=== PATIENT | female | born 1985 | race Caucasian/White ===

== ENCOUNTER 2018-12-24 20:17 | Emergency (ER) | payer OTHER ==
[2018-12-24 20:43] VITALS: BP 129/84; PULSE 73; TEMP 98.1; BMI 19.3
--- NOTE | 2018-12-25 03:01 | PDOC ---
Documentation entered by Cesar Solorzano SCRIBE, acting as scribe for Keiry Vazquez MD. Keiry Vazquez MD: This documentation has been prepared by the Rashad maitas Matthew, SCRIBE, under my direction and personally reviewed by me in its entirety. I confirm that the documentation accurately reflects all work, treatment, procedures, and medical decision making performed by me. History of Present Illness - General Chief Complaint: Urinary Problem Stated Complaint: UTI Time Seen by Provider: 12/24/18 20:21 History Source: Patient Exam Limitations: No Limitations - History of Present Illness Initial Comments: 12/24/18 21:31 Patient is a 33 year old female with a significant past medical history of who presents to the ED with complaints of urinary frequency that began earlier today. Patient reports believing she ws beginning to develop a UTI, prompting her to drink 4 pints of water in order to washout the UTI. She reports experiencing increased urinary frequency prompting her to come into the ED for further evaluation after becoming increasingly worried. Denies chest pain, sob. Denies nausea, vomiting. Denies dysuria, hematuria. Denies constipation, diarrhea. Denies contact with sick individuals, out of state travelling. Denies any other symptoms. Allergies: grapes, octopus, strawberry Social history: No smoking. No alcohol. No illicit drugs. Surgical history: None PMD: Dr. Daniel Pantoja Past History - Past Medical History Allergies/Adverse Reactions: Allergies Allergy/AdvReac Type Severity Reaction Status Date / Time grape Allergy Mild Verified 12/24/18 20:20 octopus Allergy Mild Verified 12/24/18 20:20 strawberry Allergy Mild Verified 12/24/18 20:20 Home Medications: Ambulatory Orders NK [No Known Home Medication] 12/24/18 Review of Systems - Review of Systems Able to Perform ROS?: Yes Comments:: 12/24/18 21:31 GENERAL/CONSTITUTIONAL: No fever or chills. No weakness. HEAD, EYES, EARS, NOSE AND THROAT: No change in vision. No ear pain or discharge. No sore throat. CARDIOVASCULAR: No chest pain or shortness of breath. RESPIRATORY: No cough, wheezing, or hemoptysis. GASTROINTESTINAL: No nausea, vomiting, diarrhea or constipation. GENITOURINARY: +Urinary frequency. No dysuria or change in urination. MUSCULOSKELETAL: No joint or muscle swelling or pain. No neck or back pain. SKIN: No rash NEUROLOGIC: No headache, vertigo, loss of consciousness, or change in strength/ sensation. ENDOCRINE: No increased thirst. No abnormal weight change. HEMATOLOGIC/LYMPHATIC: No anemia, easy bleeding, or history of blood clots. ALLERGIC/IMMUNOLOGIC: No hives or skin allergy. All Other Systems: Reviewed and Negative *Physical Exam - Vital Signs Last Vital Signs Temp Pulse Resp BP Pulse Ox 98.1 F 73 16 129/84 100 12/24/18 20:19 12/24/18 20:19 12/24/18 20:19 12/24/18 20:19 12/24/18 20:19 - Physical Exam Comments: 12/24/18 21:32 GENERAL: Awake, alert, and fully oriented, in no acute distress HEAD: No signs of trauma EYES: PERRLA, EOMI, sclera anicteric, conjunctiva clear ENT: Auricles normal inspection, hearing grossly normal, nares patent, oropharynx clear without exudates. Moist mucosa NECK: Normal ROM, supple, no lymphadenopathy, JVD, or masses LUNGS: Breath sounds equal, clear to auscultation bilaterally. No wheezes, and no crackles HEART: Regular rate and rhythm, normal S1 and S2, no murmurs, rubs or gallops ABDOMEN: Soft, nontender, normoactive bowel sounds. No guarding, no rebound. No masses EXTREMITIES: Normal range of motion, no edema. No clubbing or cyanosis. No cords, erythema, or tenderness NEUROLOGICAL: Cranial nerves II through XII grossly intact. Normal speech, normal gait SKIN: Warm, Dry, normal turgor, no rashes or lesions noted. ED Treatment Course - ADDITIONAL ORDERS Additional order review: Laboratory Results 12/24/18 20:25 Urine Color Yellow Urine Appearance Clear Urine pH 7.0 Urine Protein Negative Urine Glucose (UA) Negative Urine Ketones Negative Urine Blood Negative Urine Nitrite Negative Urine Bilirubin Negative Urine Urobilinogen 0.2 Ur Leukocyte Esterase Negative *DC/Admit/Observation/Transfer Diagnosis at time of Disposition: History of flank pain - Discharge Dispostion Disposition: HOME Condition at time of disposition: Good - Referrals Referrals: Daniel Pantoja [Primary Care Provider] - - Patient Instructions Printed Discharge Instructions: DI for Flank Pain Additional Instructions: Rest; eat regular meals Continue to drink plenty of water Follow-up with your general medical doctor within the next 5 days Return to ER if you have severe pain/vomiting/fever or pain on urination - Post Discharge Activity - Attestations Scribe Attestion: 12/24/18 20:22 Documentation prepared by Cesar Solorzano, acting as medical office rep for Keiry Vazquez MD.
== END 2018-12-24 21:36 | disposition home or self-care (01) ==
LOC: FER 20:17
DX: R10.31 Right lower quadrant pain (principal)
CPT/HCPCS: 81003; 99282-25